=== PATIENT | male | born 1975 | race Caucasian/White ===

== ENCOUNTER → 2017-03-11 | Outpatient (CLI) | payer OTHER | END | disposition home or self-care (01) | LOC: MW.RT 20:58 | PROVIDERS: ATTEND Student in an Organized Health Care Education/Training Program | DX: G47.10 Hypersomnia, unspecified (principal); R53.82 Chronic fatigue, unspecified | CPT/HCPCS: 95810 ==

== ENCOUNTER → 2017-04-11 | Outpatient (CLI) | payer OTHER | LOC: MW.CHFP 10:45 | PROVIDERS: ATTEND Student in an Organized Health Care Education/Training Program | DX: E78.1 Pure hyperglyceridemia (principal) | CPT/HCPCS: 36415; 80061 ==